=== PATIENT | female | born 1985 ===

== ENCOUNTER 2018-03-09 13:22 | Emergency (ER) | payer OTHER ==
[~2018-03-09] VITALS: Ht 162.6 cm; Wt 72.6 kg
== END 2018-03-09 16:37 | disposition home or self-care (01) ==
LOC: ER 13:22
DX: S61.212A Laceration without foreign body of right middle finger without damage to nail, initial encounter (principal); X58.XXXA Exposure to other specified factors, initial encounter; Y93.89 Activity, other specified; Y92.89 Other specified places as the place of occurrence of the external cause; Y99.8 Other external cause status